=== PATIENT | female | born 1990 | race American Indian/Alaskan Native ===

== ENCOUNTER 2016-08-04 14:12 | Emergency (ER) | payer BC ==
[2016-08-04 14:28] VITALS: BP 104/70
--- NOTE | 2016-08-04 15:33 | Emergency Department Report ---
ED Female HPI - General Chief complaint: Abdominal Pain Stated complaint: ABD PAIN Time Seen by Provider: 08/04/16 15:32 Source: patient Mode of arrival: Wheelchair Limitations: No Limitations - History of Present Illness Initial comments: Patient in today complaining of very bad menstrual cramping. Patient states she knows this is exactly what it is she gets this every cycle at this time is particularly worse. Patient denies abnormal vaginal discharge, dysuria, fever, chills, nausea vomiting, or recent trauma. Patient states she does have an appointment to go see her prefitter doors became in today to figure out what she could take for the cramps. Patient states she's been taking Tylenol because she was unsure if she should take Aleve. Patient medical history has no contraindications for taking NSAIDs MD Complaint: pelvic pain -: Sudden, This morning Location: suprapubic Radiation: non-radiating Severity: moderate Quality: cramping Consistency: intermittent Improves with: none Associated Symptoms: vaginal bleeding, loss of appetite (during the cramping). denies: vaginal discharge, abdominal pain, nausea/vomiting, fever/chills, headaches, dysuria, rash, shortness of breath, weakness - Related Data Previous Rx's Medication Instructions Recorded Last Taken Type Naproxen [Naprosyn TAB] 500 mg PO BID #20 tablet 08/04/16 Unknown Rx Allergies Allergy/AdvReac Type Severity Reaction Status Date / Time No Known Allergies Allergy Unverified 08/04/16 14:21 ED Review of Systems ROS: Stated complaint: ABD PAIN Other details as noted in HPI ENT: denies: ear pain, throat pain Respiratory: denies: cough, orthopnea Cardiovascular: denies: chest pain, palpitations, dyspnea on exertion, orthopnea , syncope Gastrointestinal: abdominal pain. denies: nausea, vomiting, diarrhea, constipation Skin: denies: rash (crampy suprapubic pain), lesions Neurological: denies: headache, weakness ED Past Medical Hx - Past Medical History Previous Medical History?: No - Surgical History Additional Surgical History: Breast reduction, - Social History Smoking Status: Never Smoker Substance Use Type: Alcohol - Medications Home Medications: Home Medications Medication Instructions Recorded Confirmed Last Taken Type Naproxen [Naprosyn TAB] 500 mg PO BID #20 tablet 08/04/16 Unknown Rx ED Physical Exam - General Limitations: No Limitations General appearance: alert, in no apparent distress - Head Head exam: Present: atraumatic, normocephalic - Eye Eye exam: Present: PERRL, EOMI - ENT ENT exam: Present: normal exam, mucous membranes dry - Neck Neck exam: Present: normal inspection, full ROM. Absent: meningismus - Respiratory Respiratory exam: Present: normal lung sounds bilaterally. Absent: respiratory distress, wheezes, rales, rhonchi, stridor - Cardiovascular Cardiovascular Exam: Present: regular rate. Absent: tachycardia - GI/Abdominal GI/Abdominal exam: Present: normal bowel sounds, other (she would not let me palpate abdomen) - Extremities Exam Extremities exam: Present: normal inspection, full ROM, normal capillary refill. Absent: pedal edema - Back Exam Back exam: Absent: CVA tenderness (R), CVA tenderness (L) - Neurological Exam Neurological exam: Present: alert, oriented X3 - Skin Skin exam: Present: warm, dry, intact, normal color. Absent: rash ED Course Vital Signs 08/04/16 14:21 Temperature 97.6 F Pulse Rate 75 Respiratory 18 Rate Blood Pressure 104/70 O2 Sat by Pulse 100 Oximetry - Reevaluation(s) Reevaluation #1: 08/04/16 16:02 Resting comfortably spleen to patient that she really does need to follow-up with FLEET MANAGER/DISPATCH for these progressively worsening cramps to rule out endometriosis and other concerning causes. Patient expressed understanding of this verbally. Critical care attestation.: If time is entered above; I have spent that time in minutes in the direct care of this critically ill patient, excluding procedure time. ED Disposition Clinical Impression: Dysmenorrhea Disposition: DISCHARGED TO HOME OR SELFCARE Is pt being admited?: No Condition: Stable Instructions: Dysmenorrhea (ED) Prescriptions: Naproxen [Naprosyn TAB] 500 mg PO BID #20 tablet Referrals: PRIMARY CARE, [Primary Care Provider] - 3-5 Days CASEY TRIVEDI MD [Staff Physician] - 3-5 Days
[2016-08-04 15:47] LABS: Bacteria,Urine 1+ /HPF (Negative); Bilirubin,Urine NEG (Negative); Blood,Urine LG (Negative); Ketones,Urine 20 mg/dL (Negative); Leukocyte Esterase,Urine NEG (Negative); Mucus,Urine 3+ /HPF; Nitrite,Urine NEG (Negative); Urobilinogen,Urine < 2.0 mg/dL (<2.0)
[2016-08-04 15:51] LABS: RBC,Urine > 182.0 /HPF (0.0-6.0)
[2016-08-04] MEDS ORDERED: NORCO 5/325 PO ONE (15:55)
[2016-08-04] MEDS ORDERED: TORADOL IM ONE (15:56)
== END 2016-08-04 16:26 | disposition home or self-care (01) ==
LOC: ED 14:12
DX: N94.6 Dysmenorrhea, unspecified (principal)
CPT/HCPCS: 81001; 81025; 96372; 99283; J1885